=== PATIENT | male | born 1965 | race Caucasian/White ===

== ENCOUNTER 2016-12-05 18:25 | Emergency (ER) | payer BC ==
[~2016-12-05] VITALS: Ht 182.9 cm; Wt 90.0 kg
[2016-12-05 18:59] LABS: HEMOGLOBIN 16.1 g/dL (13.7-18.0); WHITE BLOOD COUNT 9.9 x10^3/uL (3.4-10)
[2016-12-05 19:10] LABS: ASPARTATE AMINO TRANSFERASE 15 U/L (15-37); BLOOD UREA NITROGEN 15 mg/dL (7-18)
[2016-12-05 19:21] LABS: IS PT STATUS REG ER OR PRE ER? YES
[2016-12-05 19:25] VITALS: BP 140/83
== END 2016-12-05 20:29 | disposition home or self-care (01) ==
LOC: ED 20:14
DX: R07.89 Other chest pain (principal)
CPT/HCPCS: 36415; 71010; 80053; 83605; 83690; 84484; 85025; 93005; 99285

== ENCOUNTER 2017-11-01 12:31 | Emergency (ER) | payer BC ==
[~2017-11-01] VITALS: Ht 182.9 cm; Wt 100.8 kg
[2017-11-01] MEDS ORDERED: ONDANSETRON ODT 4 MG PO ONE (13:30)
[2017-11-01] MEDS ORDERED: MECLIZINE CHEWABLE 25 MG TAB PO ONE (13:30)
[2017-11-01] MEDS ORDERED: SODIUM CHLORIDE FLUSH 10ML SYR IVF ONE (13:30)
[2017-11-01] MEDS ORDERED: ONDANSETRON ODT 4 MG ONE (13:42)
[2017-11-01] MEDS ORDERED: MECLIZINE CHEWABLE 25 MG TAB ONE (13:42)
[2017-11-01 13:48] LABS: BASOPHILS # (AUTO) 0.05 x10^3/uL (0-0.1); BASOPHILS % (AUTO) 1 % (0-1); EOSINOPHILS # (AUTO) 0.04 x10^3/uL (0-0.4); EOSINOPHILS % (AUTO) 0 % (1-7); LYMPHOCYTES # (AUTO) 1.77 x10^3/uL (1-3.4); LYMPHOCYTES % (AUTO) 21 % (22-44); MD NO; MEAN CORPUSCULAR HEMOGLOBIN 30.3 pg (27.5-34.5); MEAN CORPUSCULAR HGB CONC 34.3 g/dL (33.2-36.2); MEAN CORPUSCULAR VOLUME 88.1 fL (81-97); MEAN PLATELET VOLUME 8.6 fL (7.4-10.4); MONOCYTES % (AUTO) 5 % (2-9); NEUTROPHILS # (AUTO) 6.26 x10^3/uL (1.8-6.8); NEUTROPHILS % (AUTO) 74 % (42-75); PLATELET COUNT 245 x10^3/uL (130-400); RED BLOOD COUNT 5.38 x10^6/uL (4.38-5.82); RED CELL DISTRIBUTION WIDTH 13.9 % (9.4-14.8)
[2017-11-01 14:00] LABS: ALBUMIN 3.5 g/dL (3.4-5.0); ANION GAP 9 mmol/L (5-15); CALCIUM 8.6 mg/dL (8.5-10.1); CHLORIDE 110 mmol/L (98-107); CREATININE 1.13 mg/dL (0.7-1.3)
[2017-11-01 14:05] LABS: TROPONIN I < 0.015 ng/mL (0.000-0.045)
[2017-11-01] MEDS ORDERED: SODIUM CHLORIDE 0.9% 1,000ML IVBOLUS ONE (15:00)
[2017-11-01 16:42] VITALS: BP 124/79
== END 2017-11-01 16:44 | disposition home or self-care (01) ==
LOC: ED 16:38
DX: R42 Dizziness and giddiness (principal); E03.9 Hypothyroidism, unspecified; R11.0 Nausea
CPT/HCPCS: 36415; 71045; 80048; 82040; 83880; 84484; 85025; 93005; 96360; 96361; 99285; J7030; Q0162